=== PATIENT | female | born 1955 | race Caucasian/White ===

== ENCOUNTER 2018-09-03 20:29 | Emergency (ER) | payer OTHER ==
[2018-09-03 20:49] LABS: URINE APPEARANCE SL CLOUDY; URINE BILIRUBIN NEGATIVE (NEGATIVE); URINE BLOOD LARGE (NEGATIVE); URINE COLOR YELLOW; URINE GLUCOSE (UA) NEGATIVE (NEGATIVE); URINE KETONE NEGATIVE (NEGATIVE); URINE LEUKOCYTE ESTERASE MODERATE (NEGATIVE); URINE NITRITE NEGATIVE (NEGATIVE); URINE PROTEIN NEGATIVE (NEGATIVE); URINE UROBILINOGEN 0.2 E.U./dL (0.20 - 1.00)
[2018-09-03] MEDS ORDERED: SODIUM CHLORIDE 0.9% 500 ML IV ONE (20:55)
[2018-09-03 20:56] LABS: URINE BACTERIA FEW; URINE EPITHELIAL CELLS 0 - 2 (FEW); URINE RBC 16 - 25 (NONE SEEN)
--- NOTE | 2018-09-03 21:04 | Emergency Department Record ---
History of Present Illness - General Chief complaint: Flank Pain Stated complaint: RT FLANK PAIN Time Seen by Provider: 09/03/18 20:48 Source: Patient Mode of Arrival: Ambulatory Limitations: No limitations - History of Present Illness Initial comments: The patient is here due to the acute onset of R lower back and flank pain about 45 minutes prior to presenting to the ER. The pain was sharp and stabbing and did radiate around to the front. She was nauseated with it but did not vomit. The patient has no hx of similar issues and presently the pain has resolved. She has no hx of kidney stones but is recently being worked up for a gallbladder issue by her PCP and did have an US today. The patient did vomit after the US but not with the AP that brought her to the ER. Complaint: Other Onset/Timin -: Minutes(s) Radiation: RLQ Severity scale (1-10): 8 Quality: Sharp Consistency: Constant Patient : No - Related Data Home Medications Medication Instructions Recorded Confirmed Last Taken Adalimumab [Humira Pen] 1 applic SQ ASDIR 09/03/18 09/03/18 08/21/18 Aspirin [Aspir-Low] 81 mg PO DAILY 09/03/18 09/03/18 09/03/18 Atenolol [Tenormin] 50 mg PO DAILY 09/03/18 09/03/18 09/03/18 Calcium Carbonate [Calcium] 600 mg PO BID 09/03/18 09/03/18 09/03/18 Celecoxib [Celebrex] 200 mg PO BID 09/03/18 09/03/18 09/03/18 Ergocalciferol (Vitamin D2) 50,000 unit PO WEEKLY 09/03/18 09/03/18 08/29/18 [Vitamin D2] Fluticasone/Vilanterol [Breo 1 each IH DAILY 09/03/18 09/03/18 Unknown Ellipta 100-25 Mcg INH] Hydroxychloroquine Sulfate 200 mg PO TID 09/03/18 09/03/18 09/03/18 [Plaquenil] Levothyroxine Sodium [Synthroid] 100 mcg PO DAILY 09/03/18 09/03/18 09/03/18 Montelukast Sodium 10 mg PO QHS 09/03/18 09/03/18 Unknown Omeprazole [Prilosec] 40 mg PO DAILY 09/03/18 09/03/18 09/03/18 Simvastatin [Zocor] 20 mg PO DAILY 09/03/18 09/03/18 09/03/18 Sucralfate 1 tab PO QID 09/03/18 09/03/18 09/03/18 Topiramate [Topamax] 50 mg PO DAILY 09/03/18 09/03/18 09/03/18 Tramadol HCl [Ultram] 100 mg PO BID 09/03/18 09/03/18 09/03/18 Triamterene/Hydrochlorothiazid 1 udcap PO DAILY 09/03/18 09/03/18 Unknown [Dyazide] Allergies Allergy/AdvReac Type Severity Reaction Status Date / Time Penicillins Allergy Unknown SWELLING Verified 09/03/18 20:40 OF THE FACE Travel Screening - Travel/Exposure Within Last 30 Days Have you traveled within the last 30 days?: No - Travel Symptoms Symptom Screening: None Review of Systems Constitutional: Denies: Chills, Fever Eyes: Denies: Eye discharge ENT: Denies: Congestion Respiratory: Denies: Cough, Dyspnea Cardiovascular: Denies: Arrhythmia Endocrine: Denies: Fatigue Gastrointestinal: Reports: Abdominal pain, Nausea Genitourinary: Denies: Dysuria Musculoskeletal: Reports: Back pain Skin: Denies: Bruising Past Medical History - SOCIAL HISTORY Smoking Status: Former smoker - RESPIRATORY Hx Respiratory Disorders: Yes Hx Pneumonia: Yes (2008 last time) - CARDIOVASCULAR Hx Cardio Disorders: Yes Hx Hypertension: Yes Comment:: high cholesterol - NEURO Hx Neuro Disorders: No - GI Hx GI Disorders: Yes Hx Abdominal Pain: Yes (towards top of stomach) Hx Reflux: Yes (r/t celebrex) - Hx Genitourinary Disorders: No - ENDOCRINE Hx Endocrine Disorders: Yes Hx Thyroid Disease: Yes - MUSCULOSKELETAL Hx Musculoskeletal Disorders: Yes Hx Arthritis: Yes (RA) - PSYCH Hx Psych Problems: No - HEMATOLOGY/ONCOLOGY Hx Hematology/Oncology Disorders: Yes Hx Cancer: Yes (melanoma left shoulder and back) Hx Chemotherapy: No Hx Radiation Therapy: No Family Medical History Any Significant Family History?: Yes Hx Cancer: Mother *Cancer Comment: colon, breast Hx Diabetes: Mother Hx Heart Disease: Mother *Heart Comment: arrythmia Hx HTN: Mother Physical Exam - General General Appearance: Alert, Oriented x3, Cooperative, No acute distress - Head Head exam: Atraumatic, Normocephalic, Normal inspection - Eye Eye exam: Normal appearance, PERRL, EOMI - Neck Neck exam: Normal inspection, Full ROM. negative: Tenderness - Respiratory Respiratory exam: Normal lung sounds bilaterally. negative: Respiratory distress - Cardiovascular Cardiovascular Exam: Regular rate, Normal rhythm, Normal heart sounds - GI/Abdominal GI/Abdominal exam: Soft, Normal bowel sounds. negative: Distended, Rebound, Rigid, Tenderness - Extremities Extremities exam: Normal inspection, Full ROM, Normal capillary refill. negative: Tenderness - Back Back exam: Reports: Normal inspection, Full ROM. Denies: CVA tenderness (R), CVA tenderness (L), Muscle spasm, Rash noted, Tenderness - Neurological Neurological exam: Alert. negative: Motor sensory deficit - Psychiatric Psychiatric exam: negative: Depressed - Skin Skin exam: negative: Rash Course Vital Signs 09/03/18 20:40 Temperature 97.8 F Pulse Rate 55 L Respiratory 18 Rate Blood Pressure 146/89 Pulse Ox 95 - Reevaluation(s) Reevaluation #1: The patient is doing very well at this time. She is resting comfortably with no pain or discomfort. We are waiting for the CT results. 09/03/18 21:40 Reevaluation #2: The patient is doing better at this time but the pain is returning on the R. She does not want any pain medicines for it though. I did discuss the CT results and due to the bilateral stone I did consult Urology at [facility]. I discussed the case with Dr. Elaine (Urology) and she would like to directly admit the patient to the hospital for further treatment. 09/03/18 22:28 Reevaluation #3: The patient also was apprised of the need to stay NPO. 09/03/18 22:30 Medical Decision Making - Data Complexity MDM Data: Labs Ordered and/or Reviewed, X-Ray Ordered and/or Reviewed - Lab Data Result diagrams: 09/03/18 21:03 09/03/18 21:03 Lab Results 09/03/18 Range/Units Unknown Urine Color Yellow Urine Appearance Sl cloudy Urine pH 6.5 (5.0-8.0) Ur Specific Chapman 1.025 (1.002-1.030) Urine Protein Negative (NEGATIVE) Urine Glucose (UA) Negative (NEGATIVE) Urine Ketones Negative (NEGATIVE) Urine Blood Large H (NEGATIVE) Urine Nitrite Negative (NEGATIVE) Urine Bilirubin Negative (NEGATIVE) Urine Urobilinogen 0.2 (0.20 - 1.00) E.U./dL Ur Leukocyte Esterase Moderate H (NEGATIVE) Urine RBC 16 - 25 (NONE SEEN) Urine WBC 3 - 5 (0-2/hpf) Ur Epithelial Cells 0 - 2 (FEW) Urine Bacteria Few - Radiology Data Radiology results: Report reviewed (CT: distal 4 mm R ureter stone with hydro. Also distal 3 mm stone on R. Additionally 1-2 mm distal L ureter stones with NO hydro. ) Disposition Disposition: Transfer Clinical Impression: Ureteral calculi Disposition: Acute Care Hospital Transfer Transfer To: [facility] Reason For Transfer: Urology Accepting Physician: [place] Time Discussed w/Accepting Physician: 22:30 Condition: (2) Stable Forms: Patient Portal Access Time of Disposition: 22:30 Quality - Quality Measures Quality Measures: N/A - Blood Pressure Screening View Details: Yes Does Patient Have Any of the Following: No Blood Pressure Classification: Pre-Hypertensive BP Reading Systolic Measurement: 146 Diastolic Measurement: 89 Screening for High Blood Pressure: < Pre-Hypertensive BP, F/U Documented > [ [id number]] Pre-Hypertensive Follow-up Interventions: Referral to alternative/primary care provider.
[2018-09-03 21:12] LABS: BASO % 0.4 % (0-6); EOS % 2.1 % (0-6); GRAN % 52.8 % (47-80); HEMOGLOBIN 12.9 gm/dl (11.6-16.0); LYMPH % 35.6 % (16-45); MEAN CELL VOLUME 94.1 fl (81-97); MEAN CORPUSCULAR HEMOGLOBIN 30.4 pg (27-33); MEAN CORPUSCULAR HGB CONC 32.3 g/dl (32-36); MEAN PLATELET VOLUME 10.2 fl (7.4-10.4); MONO % 9.1 % (0-9); PLATELET COUNT 183 K/uL (130-400); RED BLOOD COUNT 4.25 M/uL (3.80-5.40); RED CELL DISTRIBUTION WIDTH 12.1 % (11.5-14.5); WHITE BLOOD COUNT W/O DIFF 6.7 K/uL (4.2-12.2)
[2018-09-03 21:20] LABS: BLOOD UREA NITROGEN 12 mg/dL (8-23); CREATININE 1.2 mg/dL (0.5-0.9); EST GLOMERULAR FILTRATION RATE 48 mL/min
[2018-09-03 21:21] LABS: TOTAL PROTEIN 6.6 g/dL (6.6-8.7)
[2018-09-03 21:23] LABS: GLUCOSE,RANDOM 112 mg/dL (74-109)
[2018-09-03 21:26] LABS: ALBUMIN 3.8 g/dL (4.0-5.0); ALKALINE PHOSPHATASE 74 U/L (45-87); ALT/SGPT 18 U/L (<33); AST/SGOT 21 U/L (10.0-35.0)
[2018-09-03 21:27] LABS: BILIRUBIN,DIRECT < 0.2 mg/dL (0-0.3)
[2018-09-03] MEDS ORDERED: ONDANSETRON HCL IV 4 MG/2 ML VIAL IVP ONE (22:16)
[2018-09-03] MEDS ORDERED: MORPHINE SULFATE 10 MG/ML VIAL IVP ONE (22:16)
[2018-09-03] MEDS ORDERED: 0.9 % SODIUM CHLORIDE 1,000 ML BAG IV ONE (22:17)
[2018-09-03] MEDS ORDERED: CEFTRIAXONE SODIUM 1 GM in 0.9 % SODIUM CHLORIDE 100ML 100 ML IVPB ONE (22:27)
--- NOTE | 2018-09-05 13:52 | CT SCAN REPORT ---
EXAM: CT OF THE ABDOMEN AND PELVIS WITHOUT CONTRAST HISTORY: RIGHT FLANK PAIN. TECHNIQUE: Standard CT imaging of the abdomen and pelvis was obtained without contrast. Coronal and sagittal reformations are provided. Comparison: None. FINDINGS: Elevation of the left hemidiaphragm with mild left basilar atelectasis. The liver, gallbladder, pancreas, spleen, and adrenal glands are unremarkable. Mild right hydronephrosis with an obstructing calculus in the distal right ureter measuring 4 mm, which is just proximal to the ureterovesical junction. There is an additional 3 mm calculus in the distal right ureter, slightly more proximal than the obstructing calculus. There are a few 2-3 mm calculi in the distal left ureter just proximal to the ureterovesical junction without hydronephrosis. There are several additional renal calculi bilaterally measuring up to 2 mm. No bowel dilatation. Mild colonic diverticulosis. No visualized adenopathy, free fluid, or free air. The bladder is unremarkable. There is Grade 1 anterolisthesis of L5 on S1 due to facet arthropathy. IMPRESSION: 1. THERE ARE TWO CALCULI IN THE DISTAL RIGHT URETER, INCLUDING A 4 MM OBSTRUCTING CALCULUS JUST PROXIMAL TO THE UVJ, WHICH IS CAUSING MILD HYDRONEPHROSIS. 2. THERE ARE A FEW SMALLER CALCULI IN THE DISTAL LEFT URETER WITHOUT HYDRONEPHROSIS. 3. BILATERAL NEPHROLITHIASIS. JOB NUMBER: [id number] [facility]
== END 2018-09-03 23:15 | disposition short-term general hospital (02) ==
LOC: ER 20:29
DX: N13.2 Hydronephrosis with renal and ureteral calculous obstruction (principal); R10.31 Right lower quadrant pain; R11.2 Nausea with vomiting, unspecified; I10 Essential (primary) hypertension; Z87.891 Personal history of nicotine dependence
CPT/HCPCS: 74176; 76700; 80048; 80076; 81001; 85025; 96361; 96365; 99285; J7030